=== PATIENT | male | born 1975 ===

== ENCOUNTER 2017-09-16 07:09 | Outpatient (CLI) | payer OTHER ==
[~2017-09-16] VITALS: Ht 152.4 cm; Wt 83.9 kg
== END 2017-09-16 07:20 | disposition home or self-care (01) ==
LOC: OFIC 805 07:09
DX: H93.13 Tinnitus, bilateral (principal)

== ENCOUNTER 2017-12-16 07:37 | Outpatient (CLI) | payer OTHER ==
[~2017-12-16] VITALS: Ht 152.4 cm; Wt 83.9 kg
== END 2017-12-16 08:00 | disposition home or self-care (01) ==
LOC: OFIC 805 07:37
DX: H93.13 Tinnitus, bilateral (principal)